=== PATIENT | male | born 1990 | race African-American/Black ===

== ENCOUNTER 2023-10-04 13:51 | Emergency (ER) | payer SELFPAY ==
[~2023-10-04] VITALS: Ht 175.3 cm; Wt 73.0 kg
[2023-10-04 13:56] VITALS: O2SAT 98
[2023-10-04] MEDS: SODIUM CHLORIDE 0.9% 1,000 ML IV ONE (14:19)
[2023-10-04 14:28] LABS: BASOPHILS % 0.7 % (0.0-2.0); EOSINOPHILS % 2.5 % (0.0-5.0); HEMATOCRIT. 38.5 % (42.0-52.0); HEMOGLOBIN. 13.7 g/dL (14.0-18.0); LYMPHOCYTES % 19.6 % (20.0-50.0); MEAN CORPUSCULAR HEMOGLOBIN 30.9 pg (28.0-32.0); MEAN CORPUSCULAR HGB CONC 35.6 g/dL (31.0-37.0); MEAN CORPUSCULAR VOLUME 86.6 fL (80.0-94.0); MEAN PLATELET VOLUME 8.3 fl (7.4-10.4); MONOCYTES % 12.4 % (2.0-8.0); NEUTROPHILS % 64.8 % (40.0-76.0); PLATELET 274 x1000/uL (130-400); RED BLOOD CELL COUNT 4.45 mill/uL (4.7-6.1); WHITE BLOOD COUNT 6.6 x1000/uL (4.5-11.0)
[2023-10-04 14:46] LABS: ACETAMINOPHEN < 2 ug/mL (10-30); ALANINE AMINOTRANSFERASE 12 IU/L (10-49); ALBUMIN 4.5 g/dL (3.2-4.8); ASPARTATE AMINOTRANSFERASE 28 IU/L (<34); BILIRUBIN TOTAL 0.6 mg/dL (0.1-1.0); CALCIUM 8.5 mg/dL (8.7-10.4); CARBON DIOXIDE 25 mEq/L (21-32); CHLORIDE 104 mEq/L (98-107); CREATININE 0.9 mg/dL (0.6-1.3); ETHANOL BLOOD 75 mg/dL (<10); GLUCOSE 99 mg/dL (70-105); POTASSIUM 3.5 mEq/L (3.5-5.1); PROTEIN TOTAL 7.4 g/dL (6.0-8.3); SODIUM 139 mEq/L (136-145); UREA NITROGEN BLOOD 14 mg/dL (9-23)
[2023-10-04] MEDS: NALOXONE HCL 0.4MG/ML 1ML VIAL IV ONE (14:50)
[2023-10-04 18:00] VITALS: BP 121/77; PULSE 61; RESP 24; TEMP 98.6
== END 2023-10-04 23:51 | disposition home or self-care (01) ==
LOC: ER 14:11 → EDBD 14:11 → ER 23:51
DX: R45.1 Restlessness and agitation (principal)
CPT/HCPCS: 80053; 80307; 80329; 80320; 82962; 85025; 36415; 96361; 96374; 99283; J2310; J7030; Z7610 ×2; G0480